=== PATIENT | male | born 2000 | race Caucasian/White ===

== ENCOUNTER 2024-03-31 08:51 | Emergency (ER) | payer OTHER | END 2024-03-31 09:15 | disposition home or self-care (01) | LOC: VM.ED 08:51 | DX: L03.011 Cellulitis of right finger (principal); Z88.0 Allergy status to penicillin; Z91.030 Bee allergy status; Z88.5 Allergy status to narcotic agent | CPT/HCPCS: 99283 ==

== ENCOUNTER 2025-02-02 22:01 | Observation (INO) | payer OTHER ==
[2025-02-02] MEDS ORDERED: Sodium Chloride 0.9% 10 ML Syringe FLUSH PRN (22:10)
[2025-02-02 22:24] LABS: BASOPHILS ABSOLUTE AUTO 0.1 x10^3/uL (0.0-0.2); BASOPHILS PERCENT AUTO 0.8 % (0.2-1.2); EOSINOPHILS ABSOLUTE AUTO 0.9 x10^3/uL (0.0-0.5); EOSINOPHILS PERCENT AUTO 5.6 % (0.0-4.0); IMMATURE GRAN ABSOLUTE AUTO 0.02 x10^3/uL (0.00-0.07); LYMPHOCYTES ABSOLUTE AUTO 5.4 x10^3/uL (1.0-4.8); LYMPHOCYTES PERCENT AUTO 34.8 % (25.0-50.0); MEAN CORPUSCULAR HEMOGLOBIN 28.1 pg (26.0-32.0); MEAN CORPUSCULAR HGB CONC 36.4 g/dL (32.0-36.0); MEAN CORPUSCULAR VOLUME 77.2 fL (78.0-93.0); MONOCYTES ABSOLUTE AUTO 1.5 x10^3/uL (0.0-0.8); MONOCYTES PERCENT AUTO 9.6 % (2.0-11.0); NEUTROPHILS ABSOLUTE AUTO 7.6 x10^3/uL (1.8-7.7); NEUTROPHILS PERCENT AUTO 49.1 % (50.0-80.0); PLATELET COUNT,PLT 257 x10^3/uL (130-400)
[2025-02-02] MEDS: Sodium Chloride 0.9% 1,000 ML IV ONE (22:25)
[2025-02-02 22:27] LABS: APPEARANCE,URINE CLOUDY (CLEAR); BILIRUBIN,URINE NEGATIVE (NEGATIVE); COLOR,URINE YELLOW (YELLOW); GLUCOSE,URINE NEGATIVE (NEGATIVE); KETONES,URINE NEGATIVE (NEGATIVE); LEUKOCYTE ESTERASE,URINE NEGATIVE (NEGATIVE); NITRITE,URINE NEGATIVE (NEGATIVE); OCCULT BLOOD,URINE LARGE (NEGATIVE); PROTEIN,URINE 30 mg/dL (NEGATIVE); UROBILINOGEN,URINE 0.2 EU/dL (0.2)
[2025-02-02] MEDS: Ondansetron 4 MG/2 ML SDV IVPUSH ONE (22:27)
[2025-02-02] MEDS: HYDROmorphone 1 MG/ML Syringe IVPUSH ONE ×2 (22:29→22:52)
[2025-02-02] MEDS: Ketorolac 15 MG/ML SDV IVPUSH ONE (22:32)
[2025-02-02 22:35] LABS: BACTERIA,URINE RARE /HPF (NOT SEEN); MUCUS,URINE FEW /LPF (NOT SEEN); RBC,URINE 40-50 /HPF (NOT SEEN); SQUAMOUS EPITHELIAL CELLS,UR NOT SEEN /HPF (NOT SEEN); WBC,URINE 0-5 /HPF (NOT SEEN)
[2025-02-02 22:41] LABS: WHITE BLOOD CELL COUNT,WBC 15.5 x10^3/uL (4.0-10.0)
[2025-02-02 22:45] LABS: A/G RATIO 1.61; ALBUMIN 4.5 g/dL (3.4-5.0); BILIRUBIN TOTAL 0.9 mg/dL (0.2-1.0); CALCIUM 8.6 mg/dL (8.5-10.1); CREATININE 1.1 mg/dL (0.70-1.30); EST CRCL DRUG DOSING (CG) 113.66 mL/min; PROTEIN TOTAL,TP 7.3 g/dL (6.4-8.2)
[2025-02-02] MEDS: Potassium Chloride 10 MEQ in Premix Bag 1 BAG IV SCH (23:20)
[2025-02-02] MEDS: Sodium Chloride 0.9% 1,000 ML IV SCH (23:20)
[2025-02-03] MEDS: Take Home: Acetaminophen/oxyCODONE 325-5 MG, 5 Tab Pack PO ONE (00:31)
[2025-02-03] MEDS: Take Home: Ondansetron 4 MG Tab.DIS, 5 Tab Pack PO ONE (00:31)
[2025-02-03] MEDS: Ketorolac 15 MG/ML SDV IVPUSH ONE (00:32)
[2025-02-03] MEDS: Tamsulosin 0.4 MG Cap.ER PO ONE (00:43)
[2025-02-03] MEDS: Potassium Chloride 20 MEQ Tab.ER PO ONE ×2 (00:59→02:18)
[2025-02-03] MEDS ORDERED: Naloxone 0.4 MG/ML SDV IVPUSH PRN (02:06)
[2025-02-03] MEDS: HYDROmorphone 1 MG/ML Syringe IVPUSH PRN (02:15)
[2025-02-03 07:31] LABS: BASOPHILS PERCENT AUTO 0.3 % (0.2-1.2); EOSINOPHILS ABSOLUTE AUTO 0.1 x10^3/uL (0.0-0.5); EOSINOPHILS PERCENT AUTO 0.7 % (0.0-4.0); HEMATOCRIT 40.8 % (40.0-52.0); HEMOGLOBIN 14.6 g/dL (14.0-18.0); IMMATURE GRAN ABSOLUTE AUTO 0.02 x10^3/uL (0.00-0.07); LYMPHOCYTES ABSOLUTE AUTO 1.5 x10^3/uL (1.0-4.8); LYMPHOCYTES PERCENT AUTO 14.1 % (25.0-50.0); MEAN CORPUSCULAR HGB CONC 35.8 g/dL (32.0-36.0); MEAN CORPUSCULAR VOLUME 78.2 fL (78.0-93.0); MONOCYTES ABSOLUTE AUTO 0.7 x10^3/uL (0.0-0.8); MONOCYTES PERCENT AUTO 6.1 % (2.0-11.0); NEUTROPHILS ABSOLUTE AUTO 8.5 x10^3/uL (1.8-7.7); NEUTROPHILS PERCENT AUTO 78.6 % (50.0-80.0); PLATELET COUNT,PLT 190 x10^3/uL (130-400); RED BLOOD CELL COUNT 5.22 x10^6/uL (4.5-6.0); WHITE BLOOD CELL COUNT,WBC 10.8 x10^3/uL (4.0-10.0)
[2025-02-03 07:46] LABS: CALCIUM 8.6 mg/dL (8.5-10.1); CREATININE 1.4 mg/dL (0.70-1.30); EST CRCL DRUG DOSING (CG) 89.3 mL/min; POTASSIUM,K 5.2 mmol/L (3.5-5.1)
[2025-02-03 07:47] LABS: ANION GAP 13.2 mmol/L (5-15)
[2025-02-03] MEDS: Tamsulosin 0.4 MG Cap.ER PO SCH (09:16)
[2025-02-03] MEDS: Venlafaxine 75 MG Cap.ER PO SCH (09:16)
[2025-02-03] MEDS: Ketorolac 30 MG/ML SDV IVPUSH PRN (09:21)
[2025-02-03] MEDS: Sodium Chloride 0.9% 1,000 ML IV ONE (12:25)
[2025-02-03] MEDS: Acetaminophen 500 MG Tab PO PRN (15:35)
[2025-02-03 17:49] LABS: A/G RATIO 1.44; ALBUMIN 3.6 g/dL (3.4-5.0); CALCIUM 8.2 mg/dL (8.5-10.1); CREATININE 1.2 mg/dL (0.70-1.30); EST CRCL DRUG DOSING (CG) 104.19 mL/min; PROTEIN TOTAL,TP 6.1 g/dL (6.4-8.2)
[2025-02-03] MEDS: Ondansetron 4 MG/2 ML SDV IVPUSH PRN (17:58)
[2025-02-03] MEDS: Nicotine 7 MG/24 Hr Patch TRDERM SCH (20:51)
[2025-02-04 07:27] LABS: BASOPHILS PERCENT AUTO 0.5 % (0.2-1.2); EOSINOPHILS ABSOLUTE AUTO 0.5 x10^3/uL (0.0-0.5); EOSINOPHILS PERCENT AUTO 7.3 % (0.0-4.0); HEMATOCRIT 39.6 % (40.0-52.0); IMMATURE GRAN ABSOLUTE AUTO 0.01 x10^3/uL (0.00-0.07); LYMPHOCYTES ABSOLUTE AUTO 1.8 x10^3/uL (1.0-4.8); LYMPHOCYTES PERCENT AUTO 28.1 % (25.0-50.0); MEAN CORPUSCULAR HEMOGLOBIN 28.1 pg (26.0-32.0); MEAN CORPUSCULAR HGB CONC 35.4 g/dL (32.0-36.0); MEAN CORPUSCULAR VOLUME 79.5 fL (78.0-93.0); MONOCYTES ABSOLUTE AUTO 0.6 x10^3/uL (0.0-0.8); MONOCYTES PERCENT AUTO 8.6 % (2.0-11.0); NEUTROPHILS ABSOLUTE AUTO 3.6 x10^3/uL (1.8-7.7); NEUTROPHILS PERCENT AUTO 55.3 % (50.0-80.0); PLATELET COUNT,PLT 148 x10^3/uL (130-400); RED BLOOD CELL COUNT 4.98 x10^6/uL (4.5-6.0); WHITE BLOOD CELL COUNT,WBC 6.5 x10^3/uL (4.0-10.0)
[2025-02-04 07:51] LABS: CALCIUM 8.5 mg/dL (8.5-10.1); EST CRCL DRUG DOSING (CG) 125.02 mL/min; POTASSIUM,K 3.7 mmol/L (3.5-5.1)
[2025-02-04 08:00] LABS: ANION GAP 10.7 mmol/L (5-15)
== END 2025-02-04 10:15 | disposition home or self-care (01) ==
LOC: VM.ED 22:01 → VM.MS 02-03 00:49
PROVIDERS: ADMIT Internal Medicine; ATTEND Internal Medicine
DX: N13.1 Hydronephrosis with ureteral stricture, not elsewhere classified (principal); N20.0 Calculus of kidney; N17.9 Acute kidney failure, unspecified; F17.200 Nicotine dependence, unspecified, uncomplicated; Z79.899 Other long term (current) drug therapy; Z88.5 Allergy status to narcotic agent; Z88.0 Allergy status to penicillin; Z91.030 Bee allergy status
CPT/HCPCS: 36415; 74176; 80048; 80053; 81001; 83735; 85025; 96361; 96365; 96375; 96376; 99223; 99223-GT; 99284; 99285-25; A9270-GY; G0378; J1171; J1885; J2405; J3480; J7030; Q0162